=== PATIENT | male | born 1955 | race Native Hawaiian/Other Pacific Islander ===

== ENCOUNTER 2017-03-24 19:41 | Outpatient (CLI) | payer OTHER, BC ==
[~2017-03-24 19:41] MED LIST: AMBIEN5 MG PO; CRESTOR20 MG PO; DIOVAN HCT PO; OFLOXACIN0.31 OT; PRED1SUS OP; TAMS0.4C PO
== END 2017-03-24 20:24 | disposition short-term general hospital (02) ==
LOC: AMB 19:41
DX: R07.89 Other chest pain (principal); I16.0 Hypertensive urgency; R55 Syncope and collapse; E11.9 Type 2 diabetes mellitus without complications
CPT/HCPCS: A0425; A0427

== ENCOUNTER 2017-07-13 07:53 | Outpatient (CLI) | payer OTHER, BC | END 2017-07-13 18:11 | disposition home or self-care (01) | LOC: RAD 07:53 | DX: R13.14 Dysphagia, pharyngoesophageal phase (principal); K21.9 Gastro-esophageal reflux disease without esophagitis ==

== ENCOUNTER 2019-11-14 09:42 | Outpatient (CLI) | payer OTHER ==
[2019-11-14 10:27] LABS: POTASSIUM 4.1 mmol/L (3.6-5.2)
== END 2019-11-14 19:02 | disposition home or self-care (01) ==
LOC: LABW 09:42
PROVIDERS: Internal Medicine Cardiovascular Disease
DX: Z79.899 Other long term (current) drug therapy (principal)
CPT/HCPCS: 36415; 80048; 83880

== ENCOUNTER 2022-10-28 09:00 | Outpatient (CLI) | payer OTHER, MEDICARE ==
[2022-10-28 09:26] LABS: PLATELET COUNT 214 K/uL (142-355)
[2022-10-28 10:04] LABS: POTASSIUM 4.6 mmol/L (3.6-5.2)
== END 2022-10-28 22:15 | disposition home or self-care (01) ==
LOC: LABW 09:00
PROVIDERS: ATTEND Internal Medicine
DX: E11.22 Type 2 diabetes mellitus with diabetic chronic kidney disease (principal); N18.32 Chronic kidney disease, stage 3b; R53.83 Other fatigue
CPT/HCPCS: 36415; 80053; 81002; 82043; 82306; 82330; 82570; 82607; 82728; 83036; 83540; 83550; 83735; 83970; 84100; 84156; 84402; 84403; 84439; 84443; 85027; 85652; 86038; 86431

== ENCOUNTER 2022-11-17 12:51 | Outpatient (CLI) | payer OTHER, MEDICARE | END 2022-11-17 21:05 | disposition home or self-care (01) | LOC: RESP 12:51 | PROVIDERS: ATTEND Internal Medicine Cardiovascular Disease | DX: I10 Essential (primary) hypertension (principal) ==